=== PATIENT | male | born 1960 | race Caucasian/White ===

== ENCOUNTER 2022-03-13 00:49 | Day surgery (SDC) | payer BC, SELFPAY ==
[2022-03-05 14:59] VITALS: BMI 38.0
[2022-03-13 06:47] VITALS: BP 134/78; PULSE 70; RESP 18; TEMP 36.4; O2SAT 99
[2022-03-13] MEDS: LACTATED RINGERS 1,000 ML 150 ML IV CONT (06:50)
--- NOTE | 2022-03-13 07:24 | P.PNAN_ITS ---
Anes - Initial Pre Proc Eval Procedure: Operation Date: 03/13/22 07:30 Proposed Procedures p Screening Colonoscopy - Jeff Lieberman MD Date/Time: 03/13/22 07:24 Surgeon: Jeff Lieberman MD Pre Op Diagnosis: neoplasm screening Patient Data Age: 61 Gender: M Height: 1.83 m Weight: 124.7 kg Last Vital Signs Temp 97.5 F L 03/13/22 06:47 Pulse 70 03/13/22 06:47 Resp 18 03/13/22 06:47 BP 134/78 03/13/22 06:47 Pulse Ox 99 03/13/22 06:47 Allergies Allergy/AdvReac Type Severity Reaction Status Date / Time No Known Allergies Allergy Verified 03/13/22 06:46 Home Medications Medication Instructions Recorded Confirmed Type apixaban 5 mg tablet 5 mg PO BID 12/13/20 03/05/22 History metoprolol succinate 50 mg 50 mg PO QPM 12/13/20 03/05/22 History tablet,extended release 24 hr ascorbic acid (vitamin C) 1 cap PO DAILY 03/05/22 03/05/22 History coQ10 (ubiquinol) 1 cap PO DAILY 03/05/22 03/05/22 History cyanocobalamin (vitamin B-12) 1 tablet PO DAILY 03/05/22 03/05/22 History [Vitamin B-12] ergocalciferol (vitamin D2) 1 cap PO DAILY 03/05/22 03/05/22 History omega-3 fatty acids [Fish Oil] 1 cap PO DAILY 03/05/22 03/05/22 History vitamin B complex 1 cap PO DAILY 03/05/22 03/05/22 History vitamin E 1 cap PO DAILY 03/05/22 03/05/22 History zinc 1 cap PO DAILY 03/05/22 03/05/22 History Patient hx anesthesia problems: none Family hx anesthesia problems: none Results Review: All pre-operative results and documents have been reviewed as part of the pre-operative evaluation. [facility] Surgical History Surgical History (Updated 11/19/21 @ 10:46 by Edy Freeman MD) H/O knee surgery (~09/24/20) left developed A Fib Family History Family History Mother Diabetes mellitus Family history of obesity Family history of osteoporosis Family history of Alzheimer's disease Sibling Diabetes mellitus Family history of obesity Depression Family history of malignant neoplasm of breast in first degree relative Father Hypertension Family history of cardiovascular disease Social History Social History (Updated 12/29/21 @ 15:26 by Walter Pringle MA) Smoking status: Never smoker Alcohol intake: current Substance use: never Substance use type: does not use Living arrangements: with family Spiritual care concerns: No Anes - Eval Final PreProcedure Day of Procedure 03/13/22 07:24 Patient weight: obese Heart: regular rate and rhythm Lungs: clear to auscultation Airway: Mallampati scale class III Neurological: alert and oriented Last oral intake: >/= 8 hours ASA classification: III Emergent: no Anesthetic plan: proceed Anesthesia type and monitoring: general and standard monitoring Results Review: All pre-operative results and documents have been reviewed as part of the pre-operative evaluation. Informed Consent: The patient's anesthetic plan and its attendant risks and benefits were discussed with the patient/family/POA. Questions were solicited and answers provided to the satisfaction of the patient/family/POA.
[2022-03-13] MEDS: SIMETHICONE ORAL SUSPENSION 20 MG/0.3 ML 30 ML BOTTLE 0.6 ML IRRIGATION (07:36)
--- NOTE | 2022-03-13 07:53 | WPDGICN ---
Assessment and Plan Assessment and plan (1) Encounter for screening colonoscopy: Code(s): Z12.11 - Encounter for screening for malignant neoplasm of colon Status: Acute Assessment and Plan: Patient presents for screening colonoscopy. Appears to be at average risk for colon polyps. Eliquis will be briefly held prior to procedure. GI Consult Note Consult date/time: 03/13/22 07:53 HPI: Aditya tAkins Sr. is a 61 year old male Presents for screening colonoscopy. Patient reports that his weight appetite and bowel movements are normal. He denies abdominal pain. He has had no bleeding. Patient reports his last colonoscopy 10 years ago was unremarkable. Family history is noncontributory. Past medical history is significant for knee surgery in 2019. He has a history of atrial fib / flutter and now is on Eliquis typically. Review of Systems Review of Systems: All systems reviewed & are unremarkable except as noted in HPI and below PMFSH Surgical History Surgical History (Updated 11/19/21 @ 10:46 by Edy Freeman MD) H/O knee surgery (~09/24/20) left developed A Fib Family History Family History Mother Diabetes mellitus Family history of obesity Family history of osteoporosis Family history of Alzheimer's disease Sibling Diabetes mellitus Family history of obesity Depression Family history of malignant neoplasm of breast in first degree relative Father Hypertension Family history of cardiovascular disease Social History Social History (Updated 12/29/21 @ 15:26 by Walter Pringle MA) Smoking status: Never smoker Alcohol intake: current Substance use: never Substance use type: does not use Living arrangements: with family Spiritual care concerns: No Meds Home Medications and Allergies Home Medications Medication Instructions Recorded Confirmed Type apixaban 5 mg tablet 5 mg PO BID 12/13/20 03/05/22 History metoprolol succinate 50 mg 50 mg PO QPM 12/13/20 03/05/22 History tablet,extended release 24 hr ascorbic acid (vitamin C) 1 cap PO DAILY 03/05/22 03/05/22 History coQ10 (ubiquinol) 1 cap PO DAILY 03/05/22 03/05/22 History cyanocobalamin (vitamin B-12) 1 tablet PO DAILY 03/05/22 03/05/22 History [Vitamin B-12] ergocalciferol (vitamin D2) 1 cap PO DAILY 03/05/22 03/05/22 History omega-3 fatty acids [Fish Oil] 1 cap PO DAILY 03/05/22 03/05/22 History vitamin B complex 1 cap PO DAILY 03/05/22 03/05/22 History vitamin E 1 cap PO DAILY 03/05/22 03/05/22 History zinc 1 cap PO DAILY 03/05/22 03/05/22 History Allergies Allergy/AdvReac Type Severity Reaction Status Date / Time No Known Allergies Allergy Verified 03/13/22 06:46 Vital Signs Vital Signs - 24 hr 03/13/22 06:47 Temperature 97.5 F L Pulse Rate 70 Respiratory Rate 18 Blood Pressure 134/78 Pulse Oximetry 99 Exam Narrative: Physical exam reveals patient to be alert. Vital signs stable. HEENT exam is unremarkable. Patient is anicteric. Lungs are clear to auscultation and percussion. Heart is without murmur or extra sounds. Abdominal exam bowel sounds are present soft nontender with no organomegaly. Digital external rectal exam is normal.
[2022-03-13 07:56] VITALS: BP 127/74; PULSE 83; RESP 18; O2SAT 96
[2022-03-13 08:06] VITALS: BP 117/78; PULSE 73; RESP 18; O2SAT 96
--- NOTE | 2022-03-13 08:09 | SUR.PHASEII ---
Dr. Lieberman instructed the patient to restart his eliquis tomorrow. RN added this instruction to his discharge papers.
[2022-03-13 08:16] VITALS: BP 120/81; PULSE 69; RESP 16; O2SAT 97
== END 2022-03-13 08:20 | disposition home or self-care (01) ==
PROVIDERS: PCP Family Medicine; Visit Provider Internal Medicine Gastroenterology
PROC: 0DJD8ZZ Inspection of Lower Intestinal Tract, Via Natural or Artificial Opening Endoscopic (ICD-10-PCS; CPT 45378; principal; 2022-03-13 07:30)
DX: Z12.11 Encounter for screening for malignant neoplasm of colon (principal); D12.8 Benign neoplasm of rectum; I48.91 Unspecified atrial fibrillation; Z79.01 Long term (current) use of anticoagulants; E66.9 Obesity, unspecified; Z68.37 Body mass index [BMI] 37.0-37.9, adult
CPT/HCPCS: 45385; 88305; J2704; J7120